=== PATIENT | male | born 1955 | race Asian ===

== ENCOUNTER 2021-05-24 13:40 | Emergency (ER) | payer MEDICARE ==
[~2021-05-24] VITALS: Ht 170.2 cm; Wt 65.8 kg
[2021-05-24 15:36] LABS: Urine Bacteria NONE SEEN /hpf (None Seen); Urine Blood Negative /uL (Negative); Urine Mucus FEW (None Seen); Urine Specific Gravity 1.024 (1.001-1.035); Urine WBC 1 /hpf (0 - 3)
[2021-05-24 16:05] LABS: Hematocrit 43.9 % (41.0-53.0); Hemoglobin 14.9 g/dL (13.5-17.5); Mean Corpuscular Hemoglobin 30.3 pg (28.0-32.0); Mean Corpuscular Hgb Conc. 33.9 g/dL (32.0-36.0); Mean Corpuscular Volume 89.5 fL (80.0-100.0); Red Blood Cells 4.91 10^6/uL (4.5-5.90); Red Cell Distribution Width 14.3 % (11.8-14.3); White Blood Cell 10.2 10^3/uL (4.4-10.8)
[2021-05-24 16:10] LABS: Band Neutrophils % (manual) 0; Basophils % (manual) 0 (0.0-2.0); Blast Cells 0; Metamyelocytes % 0; Myelocytes % 0; Promyelocytes % 0
[2021-05-24 16:17] LABS: Albumin 3.5 g/dL (3.4-5.0); Calcium 9.1 mg/dL (8.5-10.1); Potassium 3.6 mmol/L (3.5-5.1)
[2021-05-24 16:21] LABS: BUN/Creatinine Ratio 10.8; Bilirubin, Total 0.5 mg/dL (0.2-1.0); Total Protein 7.6 g/dL (6.4-8.2)
[2021-05-24 16:46] LABS: Eosinophils % (manual) 2 (0-7); Lymphocytes % (manual) 29 (10.0-50.0); Monocytes % (manual) 16 (0-12); Reactive Lymphocytes 1
[2021-05-24 22:48] VITALS: BP 140/80
== END 2021-05-24 22:58 | disposition home or self-care (01) ==
LOC: ER 13:40
DX: N20.0 Calculus of kidney (principal)
CPT/HCPCS: 36415; 74176; 80053; 81001; 83690; 85007; 85027